=== PATIENT | female | born 1935 | race Caucasian/White ===

== ENCOUNTER 2019-02-17 15:52 | Emergency (ER) | payer MEDICARE, OTHER ==
[~2019-02-17] VITALS: Ht 172.7 cm; Wt 80.9 kg
[2019-02-17 19:07] VITALS: BP 115/54
== END 2019-02-17 20:14 | disposition home or self-care (01) ==
LOC: ED 19:32
DX: R07.89 Other chest pain (principal); R53.1 Weakness; R42 Dizziness and giddiness; M79.602 Pain in left arm; M79.601 Pain in right arm
CPT/HCPCS: 36415; 71046; 80053; 83735; 84443; 84484; 85025; 93005; 99284

== ENCOUNTER 2020-03-14 06:05 | Day surgery (SDC) | payer MEDICARE, OTHER ==
[~2020-03-14] VITALS: Ht 172.7 cm; Wt 81.1 kg
[~2020-03-14 06:05] MED LIST: FLUT9.9S NAS; HYDR12.517 PO; PANT20TA4 PO
[2020-03-14] MEDS ORDERED: LACTATED RINGERS 1,000 ML IV SCH (06:33)
[2020-03-14] MEDS ORDERED: BUPIVACAINE/PF 0.5% ONE (06:42)
[2020-03-14 06:50] VITALS: BP 151/65
[2020-03-14] MEDS ORDERED: CHLORHEXIDINE 15 ML UDC MM ONE (07:00)
[2020-03-14] MEDS ORDERED: pantoprazole PO (07:08)
[2020-03-14] MEDS ORDERED: [UNRECOGNIZED DRUG - OTHER] PO (07:09)
[2020-03-14] MEDS ORDERED: cloniDINE/PF 100 MCG/ML, 10 ML ONE (07:15)
[2020-03-14] MEDS ORDERED: MAGNESIUM SULFATE 1 GM/2 ML ONE (07:15)
[2020-03-14] MEDS ORDERED: LABETALOL 5MG/ML, 20ML ONE (07:15)
[2020-03-14] MEDS ORDERED: LIDOCAINE 1%, 20ML ONE (07:16)
[2020-03-14] MEDS ORDERED: MIDAZOLAM 1 MG/ML, 2ML ONE (07:17)
[2020-03-14] MEDS ORDERED: ROCURONIUM 10MG/ML,5ML ONE (07:18)
[2020-03-14] MEDS ORDERED: FENTANYL PF 100 MCG/2ML ONE ×2 (07:18→08:55)
[2020-03-14] MEDS ORDERED: GLYCOPYRROLATE 0.2MG/1ML, 5ML ONE (07:18)
[2020-03-14] MEDS ORDERED: PROPOFOL 10 MG/ML, 20ML ONE (07:18)
[2020-03-14] MEDS ORDERED: DEXAMETHASONE 4 MG/ML, 1ML ONE (07:18)
[2020-03-14 07:21] LABS: ALANINE AMINOTRANSFERASE 16 U/L (12-78); ALBUMIN 3.3 g/dL (3.4-5.0); ANION GAP 8 mmol/L (5-15); CALCIUM 9.1 mg/dL (8.5-10.1); CHLORIDE 105 mmol/L (98-107); CREATININE 0.62 mg/dL (0.55-1.02)
[2020-03-14 07:23] LABS: ALKALINE PHOSPHATASE 99 U/L (45-117); BILIRUBIN,TOTAL 0.7 mg/dL (0.2-1.0); TOTAL PROTEIN 6.3 g/dL (6.4-8.2)
[2020-03-14] MEDS ORDERED: HYDROmorphone 1 MG/ML, 1ML INJ IVPush PRN (08:30)
[2020-03-14] MEDS ORDERED: ACETAMINOPHEN 325 MG TABLET PO PRN (08:30)
[2020-03-14] MEDS ORDERED: ALBUTEROL/IPRATROPIUM 2.5MG/0.5MG, 3 ML NPPB PRN (08:30)
[2020-03-14] MEDS ORDERED: HYDROcodone/APAP 7.5-325MG/15ML UDC PO PRN (08:30)
[2020-03-14] MEDS ORDERED: EPHEDRINE 50 MG/ML, 1ML IM PRN (08:30)
[2020-03-14] MEDS ORDERED: DIPHENHYDRAMINE 50 MG/ML, 1ML IVPush PRN (08:30)
[2020-03-14] MEDS ORDERED: EPHEDRINE 50 MG/ML, 1ML IVPush PRN (08:30)
[2020-03-14] MEDS ORDERED: LORazepam 2 MG/ML, 1ML IVPush PRN (08:30)
[2020-03-14] MEDS ORDERED: OXYcodone 5 MG/5 ML ORAL.SOL UDC PO PRN (08:30)
[2020-03-14] MEDS ORDERED: hydrALAzine 20 MG/ML, 1ML IV PRN (08:30)
[2020-03-14] MEDS ORDERED: METOCLOPRAMIDE 5 MG/ML, 2ML IVPush PRN (08:30)
[2020-03-14] MEDS ORDERED: METHOCARBAMOL 1,000 MG in DEXTROSE 5% 100 ML IV PRN ×2 (08:30→11:30)
[2020-03-14] MEDS ORDERED: DIAZEPAM 5 MG/ML, 2ML IVPush PRN (08:30)
[2020-03-14] MEDS ORDERED: HALOPERIDOL 5 MG/ML IV PRN (08:30)
[2020-03-14] MEDS ORDERED: MIDAZOLAM 1 MG/ML, 2ML IV PRN (08:30)
[2020-03-14] MEDS ORDERED: MEPERIDINE/PF 25MG/0.5ML IVPush PRN (08:30)
[2020-03-14] MEDS: FENTANYL PF 100 MCG/2ML IV PRN ×3 (08:56→09:19)
[2020-03-14] MEDS ORDERED: ACETAMINOPHEN 650 MG/20.3 ML UDC ONE (09:06)
[2020-03-14] MEDS ORDERED: OXYcodone 5 MG/5 ML ORAL.SOL UDC ONE (09:06)
[2020-03-14] MEDS: LABETALOL 5MG/ML, 20ML IV PRN ×2 (09:24→09:34)
== END 2020-03-14 12:15 | disposition home or self-care (01) ==
LOC: OUT 06:05
PROVIDERS: ATTEND Orthopaedic Surgery Hand Surgery
DX: S52.572A Other intraarticular fracture of lower end of left radius, initial encounter for closed fracture (principal); Z20.828 Contact with and (suspected) exposure to other viral communicable diseases; I10 Essential (primary) hypertension; K21.9 Gastro-esophageal reflux disease without esophagitis; J44.9 Chronic obstructive pulmonary disease, unspecified; G47.30 Sleep apnea, unspecified; M19.90 Unspecified osteoarthritis, unspecified site; Z79.890 Hormone replacement therapy; Z79.899 Other long term (current) drug therapy; Z88.8 Allergy status to other drugs, medicaments and biological substances; Z98.890 Other specified postprocedural states; Z82.49 Family history of ischemic heart disease and other diseases of the circulatory system; Z83.3 Family history of diabetes mellitus; W18.39XA Other fall on same level, initial encounter; Y93.89 Activity, other specified; Y92.096 Garden or yard of other non-institutional residence as the place of occurrence of the external cause; Y99.8 Other external cause status
CPT/HCPCS: 25609; 36415; 73100; 76000; 80053; 87635; 93005; C1713; J0735; J1100; J2250; J2704; J3010; J3475; J7120